=== PATIENT | female | born 2000 | race Caucasian/White ===

== ENCOUNTER 2022-09-17 18:26 | Inpatient (IN) | payer MEDICAID ==
[~2022-09-17] VITALS: Ht 152.4 cm; Wt 63.5 kg
[~2022-09-17 18:26] MED LIST: OXYTOCIN 10 UNITS/ML 1ML ONE
[2022-09-17] MEDS ORDERED: METHYLERGONOVINE MALEATE 0.2 MG/ML IM PRN (19:00)
[2022-09-17] MEDS ORDERED: LIDOCAINE HCL 1% 20ML VIAL (Pyxis) INJ INFIL NR (19:00)
[2022-09-17] MEDS ORDERED: BENZOCAINE/LANOLIN/ALOE VERA SPRAY TOP PRN (19:15)
[2022-09-17] MEDS ORDERED: RHO(D) IMMUNE GLOBULIN 300 MCG/SYR IM PRN (19:15)
[2022-09-17] MEDS ORDERED: IBUPROFEN 400MG TABLET PO PRN (19:15)
[2022-09-17] MEDS: IBUPROFEN 800MG TABLET PO PRN (19:28)
[2022-09-17 20:15] VITALS: BP 116/65
[2022-09-17 21:30] VITALS: BP 111/64
[2022-09-17 21:32] LABS: CLARITY URINE CLEAR (CLEAR); COLOR URINE YELLOW (YELLOW); KETONES URINE 2+ (NEGATIVE); LEUKOCYTE ESTERASE URINE NEGATIVE (NEGATIVE); NITRITE URINE NEGATIVE (NEGATIVE); OCCULT BLOOD URINE TRACE (NEGATIVE); PROTEIN URINE TRACE (NEGATIVE); SPECIFIC GRAVITY URINE 1.012 (1.005-1.030); UROBILINOGEN URINE 0.2 E.U./dL (0.2-1.0)
[2022-09-17 21:37] LABS: *AMPHETAMINES SCREEN URINE NEGATIVE (NEGATIVE); *BARBITURATES SCREEN URINE NEGATIVE (NEGATIVE); *BENZODIAZEPINES SCREEN URINE NEGATIVE (NEGATIVE); *COCAINE SCREEN URINE NEGATIVE (NEGATIVE); METHADONE URINE SCREEN NEGATIVE (NEGATIVE); OPIATES URINE SCREEN NEGATIVE (NEGATIVE); PHENCYCLIDINE URINE SCREEN NEGATIVE (NEGATIVE)
[2022-09-17 21:37] LABS: HEMATOCRIT. 30.7 % (36.0-48.0); HEMOGLOBIN. 10.1 g/dL (12.0-16.0); MEAN CORPUSCULAR HEMOGLOBIN 28.5 pg (28.0-32.0); MEAN CORPUSCULAR VOLUME 86.8 fL (81.0-99.0); MEAN PLATELET VOLUME 8.3 fl (7.4-10.4); PLATELET 224 x1000/uL (130-400); RED BLOOD CELL COUNT 3.54 mill/uL (4.2-5.4); RED CELL DISTRIBUTION WIDTH 15.7 % (11.6-14.6)
[2022-09-17 21:43] LABS: CANNABINOID URINE SCREEN PRESUMTIVE POSITIVE (NEGATIVE)
[2022-09-17 21:48] LABS: INR 0.9; PARTIAL THROMBOPLASTIN TIME 25.1 sec (23.4-31.0); PROTHROMBIN TIME 10.1 sec (9.6-11.0)
[2022-09-17] MEDS ORDERED: INFLUENZA VACCINE 05/PF 0.5 ML SYRINGE IM ONE (22:00)
[2022-09-17] MEDS ORDERED: TETANUS, DIPHTHERIA, PERTUSSIS VAC/PF 0.5ML (>10YR OLD) IM ONE (22:00)
[2022-09-17 22:07] LABS: PLATELET ESTIMATE NORMAL
[2022-09-17 22:18] LABS: HEPATITIS B SURFACE ANTIGEN NEGATIVE
[2022-09-18] VITALS: BP 104/52
[2022-09-18] MEDS: IBUPROFEN 800MG TABLET PO PRN ×3 (02:59→18:39)
[2022-09-18 04:00] VITALS: BP 115/60
[2022-09-18 07:30] VITALS: BP 111/56
[2022-09-18 08:23] LABS: BASOPHILS % 0.4 % (0.0-2.0); EOSINOPHILS % 0.4 % (0.0-5.0); HEMATOCRIT. 29.9 % (36.0-48.0); MEAN CORPUSCULAR HEMOGLOBIN 29.4 pg (28.0-32.0); MEAN CORPUSCULAR VOLUME 88.3 fL (81.0-99.0); MEAN PLATELET VOLUME 8.3 fl (7.4-10.4); MONOCYTES % 6.3 % (2.0-8.0); NEUTROPHILS % 82.9 % (40.0-76.0); PLATELET 215 x1000/uL (130-400); RED BLOOD CELL COUNT 3.39 mill/uL (4.2-5.4); RED CELL DISTRIBUTION WIDTH 15.9 % (11.6-14.6)
[2022-09-18] MEDS: FERROUS SULFATE 325MG TABLET PO SCH ×2 (08:55→18:39)
[2022-09-18] MEDS: PRENATAL VIT/FE FUMARATE/FA TABLET PO SCH (08:55)
[2022-09-18] MEDS ORDERED: PNEUMOCOCCAL 23-VAL P-SAC VAC 0.5 ML IM ONE (09:00)
[2022-09-18 15:00] VITALS: BP 108/64
[2022-09-18 20:00] VITALS: BP 106/50
[2022-09-19] MEDS: IBUPROFEN 800MG TABLET PO PRN ×2 (00:41→08:36)
[2022-09-19 04:00] VITALS: BP 106/58
[2022-09-19 08:00] VITALS: BP 110/58
[2022-09-19] MEDS: PRENATAL VIT/FE FUMARATE/FA TABLET PO SCH (08:36)
[2022-09-19] MEDS: FERROUS SULFATE 325MG TABLET PO SCH (08:36)
[2022-09-19] MEDS ORDERED: FERR-63 PO (09:38)
[2022-09-19] MEDS ORDERED: IBUP-2030 PO (09:38)
[2022-09-19] MEDS ORDERED: MULT-1116 MT (09:38)
[2022-09-20 19:08] LABS: HIV SCREEN 4G Non Reactive (Non Reactive)
== END 2022-09-19 10:50 | disposition home or self-care (01) | DRG 548 ==
LOC: OBSVTOIN 18:26 → 8 EST LDRP 18:26 → 8EST 22:50
PROVIDERS: ADMIT Obstetrics & Gynecology; ATTEND Obstetrics & Gynecology
PROC: 10D17ZZ Extraction of Products of Conception, Retained, Via Natural or Artificial Opening (ICD-10-PCS; principal; 2022-09-17)
DX: Z39.0 Encounter for care and examination of mother immediately after delivery (principal); F12.10 Cannabis abuse, uncomplicated; O90.81 Anemia of the puerperium; Z20.822 Contact with and (suspected) exposure to COVID-19; O73.0 Retained placenta without hemorrhage
CPT/HCPCS: 36415; 80305; 80349; 81003; 85025; 86592; 86762; 86850; 86900; 87340; 87389; 87426; 90686; 90715; 99281